=== PATIENT | female | born 1975 | race Caucasian/White ===

== ENCOUNTER 2016-08-22 12:28 | Emergency (ER) | payer OTHER ==
[2016-08-22 13:04] LABS: BILIRUBIN NEGATIVE (NEGATIVE); BLOOD 3+ Ery/uL (NEGATIVE); CLARITY CLEAR (CLEAR); COLOR YELLOW (YELLOW); GLUCOSE (U) NORMAL (NORMAL); KETONE (U) NEGATIVE (NEGATIVE); LEUKOCYTES TRACE Leu/uL (NEGATIVE); NITRITE NEGATIVE (NEGATIVE); PROTEIN NEGATIVE (NEGATIVE); SPECIFIC GRAVITY >=1.030 (1.001-1.030); pH 5.5 (5.0-9.0)
[2016-08-22 13:11] LABS: BACTERIA TRACE; SQUAMOUS EPITHELIAL CELLS RARE
== END 2016-08-22 14:06 | disposition home or self-care (01) ==
LOC: FER 12:28
PROVIDERS: Nurse Practitioner
DX: A59.01 Trichomonal vulvovaginitis (principal); Z88.0 Allergy status to penicillin
CPT/HCPCS: 81001; 87210

== ENCOUNTER 2020-10-28 11:18 | Emergency (ER) | payer OTHER ==
[~2020-10-28 11:18] MED LIST: FLEXERIL10 MG PO; PREDNISONE20 MG PO; ROBAXIN750 MG PO; TESSALON PERLE100 M1 PO; VOLTAREN **OUT75 MG PO
[2020-10-28 12:10] LABS: ALBUMIN 3.7 g/dL (3.4-5.0); BILIRUBIN - TOTAL 0.8 mg/dL (0.2-1.0); CREATININE 0.75 mg/dL (0.51-0.95); GLOBULIN (CALCULATION) 3.5 g/dL; MAGNESIUM 1.9 mg/dL (1.8-2.4); POTASSIUM 3.8 mmol/L (3.5-5.1); TOTAL PROTEIN 7.2 g/dL (6.4-8.2)
[2020-10-28 12:19] LABS: BASOPHIL 0.8 % (0-2); EOSINOPHIL 4.2 % (0-5); HCT 41.7 % (37.0-47.0); HGB 14.1 g/dl (12.5-16.0); MCH 29.8 pg (25.0-31.0); MCHC 33.8 g/dL (32.0-36.0); MCV 88.2 fL (78.0-100.0); MONOCYTE 7.6 % (0-12); MPV 12.2 fL (6.0-9.5); NEUTROPHIL 60.9 % (41-80); NRBC 0; PLT 236 K/uL (150-400); RBC 4.73 M/uL (4.20-5.40); RDW 13.5 % (11.5-14.0); WBC 10.8 K/uL (4.0-10.5)
[2020-10-28 12:20] LABS: BILIRUBIN NEGATIVE (NEGATIVE); BLOOD NEGATIVE Ery/uL (NEGATIVE); CLARITY CLEAR (CLEAR); COLOR YELLOW (YELLOW); GLUCOSE (U) NORMAL (NORMAL); LEUKOCYTES 2+ Leu/uL (NEGATIVE); NITRITE NEGATIVE (NEGATIVE); PROTEIN NEGATIVE (NEGATIVE); SPECIFIC GRAVITY 1.015 (1.001-1.030); UROBILINOGEN 0.2 mg/dL (0.2-1.0)
[2020-10-28 12:23] LABS: INR 1.04 (0.9-1.2); PROTHROMBIN TIME 12.9 SECONDS (11.4-13.6)
[2020-10-28 12:42] LABS: BACTERIA TRACE; URINARY RBC RARE
[2020-10-28] MEDS ORDERED: REGLAN10 MG PO (13:32)
[2020-10-28] MEDS ORDERED: METRONIDAZOLE500 MG PO (13:32)
== END 2020-10-28 13:59 | disposition home or self-care (01) ==
LOC: FER 11:18
PROVIDERS: Emergency Medicine
DX: G43.909 Migraine, unspecified, not intractable, without status migrainosus (principal)
CPT/HCPCS: 36415; 80053; 81001; 83735; 84145; 85025; 85610; 85730; J1170; J1200; J2765; J7030